=== PATIENT | male | born 1975 | race Caucasian/White ===

== ENCOUNTER 2017-08-11 05:30 | Day surgery (SDC) | payer MEDICAID ==
[~2017-08-11] VITALS: Ht 172.7 cm; Wt 136.4 kg
[~2017-08-11 05:30] MED LIST: GLIP10 PO; HYDR25TA PO; INSLAN SQ; METF500T4 PO; METO25 PO; NIFE60TA71 PO
[2017-08-11] MEDS ORDERED: HydrALAZINE HCL 20 MG/ML VIAL IVP ONE (05:31)
[2017-08-11] MEDS ORDERED: TROPICAMIDE 1% 2 ML OPHTHALMIC SOLUTION ONE (05:44)
[2017-08-11] MEDS ORDERED: RINGERS SOLUTION,LACTATED 500 ML IV ONE ×2 (05:44→06:00)
[2017-08-11] MEDS ORDERED: FLURBIPROFEN SODIUM 0.03% 2.5 ML OPHTHALMIC SOLUTION ONE (05:44)
[2017-08-11] MEDS ORDERED: TETRACAINE HCL/PF 0.5% 4 ML OPHTHALMIC SOLUTION ONE (05:44)
[2017-08-11] MEDS ORDERED: PHENYLEPHRINE HCL 2.5% 2 ML OPHTHALMIC SOLUTION ONE (05:45)
[2017-08-11] MEDS ORDERED: CYCLOPENTOLATE HCL 1% 2 ML OPHTHALMIC SOLUTION ONE (05:45)
[2017-08-11] MEDS ORDERED: DICLOFENAC SODIUM 0.1% 2.5 ML OPHTHALMIC SOLUTION ONE (05:52)
[2017-08-11] MEDS ORDERED: MOXIFLOXACIN HCL 0.5% 3 ML OPHTHALMIC SOLUTION ONE (05:52)
[2017-08-11] MEDS ORDERED: CYCLOPENTOLATE HCL 2% 2 ML OPHTHALMIC SOLUTION ONE (05:53)
[2017-08-11] MEDS ORDERED: ACETAMINOPHEN 325 MG TABLET PO PRN (06:00)
[2017-08-11] MEDS: DICLOFENAC SODIUM 0.1% 2.5 ML OPHTHALMIC SOLUTION OS SCH ×3 (06:41→06:53)
[2017-08-11] MEDS: MOXIFLOXACIN HCL 0.5% 3 ML OPHTHALMIC SOLUTION OS SCH ×3 (06:41→06:53)
[2017-08-11] MEDS: PHENYLEPHRINE HCL 2.5% 2 ML OPHTHALMIC SOLUTION OS SCH ×3 (06:41→06:53)
[2017-08-11] MEDS: CYCLOPENTOLATE HCL 2% 2 ML OPHTHALMIC SOLUTION OS SCH ×3 (06:41→06:53)
[2017-08-11] MEDS: TETRACAINE HCL/PF 0.5% 4 ML OPHTHALMIC SOLUTION OS SCH ×3 (06:41→06:53)
[2017-08-11 06:43] LABS: GLUCOSE,POINT OF CARE 94 MG/DL (70-110)
[2017-08-11] MEDS ORDERED: SODIUM CL IRRIG SOLN BAG 0 ML IRRIG ONE (08:40)
[2017-08-11] MEDS ORDERED: MIDAZOLAM HCL 2 MG/2 ML VIAL IVP ONE (12:00)
[2017-08-11] MEDS ORDERED: FentaNYL CITRATE-PF 100 MCG/2 ML VIAL IVP ONE (12:00)
[2017-08-11] MEDS ORDERED: EPINEPHrine 1:1,000 [1 MG/ML] AMP ONE (15:56)
[2017-08-11] MEDS ORDERED: POVIDONE-IODINE 10% 15 ML SOLUTION UD ONE (15:56)
[2017-08-11] MEDS ORDERED: HYALURONATE SODIUM 12 MG/ML 0.8 ML SYRINGE IO ONE (15:56)
== END 2017-08-11 08:40 | disposition home or self-care (01) ==
LOC: SURGERY 05:30
PROVIDERS: ATTEND Ophthalmology
DX: E11.36 Type 2 diabetes mellitus with diabetic cataract (principal); H25.12 Age-related nuclear cataract, left eye; I10 Essential (primary) hypertension; E66.3 Overweight; Z79.4 Long term (current) use of insulin; Z98.890 Other specified postprocedural states; Z87.39 Personal history of other diseases of the musculoskeletal system and connective tissue
CPT/HCPCS: 66984; 82962; 93005; C1780; J0360; J2250; J3010; J7120; J0171; J3490

== ENCOUNTER 2021-12-17 10:56 | Day surgery (SDC) | payer MEDICARE, MEDICAID ==
[~2021-12-17] VITALS: Ht 172.7 cm; Wt 148.6 kg
[~2021-12-17 10:56] MED LIST changes: +ATOR40TA28 PO; +BRIM15DR8; +DORZ210OS; +FERR-89 PO; +FOLI-130 PO; -GLIP10 PO; -HYDR25TA PO; +INSREG SQ; +LABE100T51 PO; +LANT500T7 PO; -METF500T4 PO; -METO25 PO; +MIDO2.5T19 PO; -NIFE60TA71 PO; +PIOG45TA4 PO; +SODIUM CHLORIDE 0.9% 1,000 ML IV ONE; +SODIUM CHLORIDE 0.9% 1,000 ML ONE
[2021-12-17] MEDS ORDERED: LIDOCAINE/PF 2% 5 ML VIAL IM ONE (10:57)
[2021-12-17] MEDS ORDERED: PROPOFOL 1% 20 ML VIAL IVP ONE (10:57)
[2021-12-17 11:32] LABS: COVID AG,FIA SOURCE NASAL SWAB
[2021-12-17 12:01] LABS: GLUCOMETER DEV NAME(LOC) SDS.; GLUCOSE,POINT OF CARE 110 MG/DL (70-110)
== END 2021-12-17 15:25 | disposition home or self-care (01) ==
LOC: SURGERY 10:56
PROVIDERS: ATTEND Student in an Organized Health Care Education/Training Program
DX: K92.1 Melena (principal); D50.9 Iron deficiency anemia, unspecified; K62.1 Rectal polyp; K31.89 Other diseases of stomach and duodenum; E11.22 Type 2 diabetes mellitus with diabetic chronic kidney disease; I12.0 Hypertensive chronic kidney disease with stage 5 chronic kidney disease or end stage renal disease; N18.6 End stage renal disease; K64.9 Unspecified hemorrhoids; K25.9 Gastric ulcer, unspecified as acute or chronic, without hemorrhage or perforation; Z79.899 Other long term (current) drug therapy; Z98.890 Other specified postprocedural states; Z86.11 Personal history of tuberculosis
CPT/HCPCS: 45380; 43239; 82962; 87426; 88305; 88312; C9803; J2704; J3490; J7030